=== PATIENT | male | born 1980 | race Caucasian/White ===

== ENCOUNTER 2018-12-19 23:04 | Emergency (ER) | payer SELFPAY ==
[2018-12-19 23:19] VITALS: TEMP 98.9; BMI 28.8
[2018-12-19] MEDS ORDERED: IBUPROFEN 600 MG TABLET (FP) PO ONE (23:39)
--- NOTE | 2018-12-19 23:43 | PDOC ---
History of Present Illness - General Chief Complaint: Injury Stated Complaint: RIGHT WRIST PAIN Time Seen by Provider: 12/19/18 23:38 History Source: Patient Exam Limitations: Intoxication - History of Present Illness Initial Comments: 12/19/18 23:40 HISTORY OF PRESENT ILLNESS: This 38-year-old RHD male was brought to emergency department by his brother for evaluation of right wrist pain status post slip and fall down 3 concrete steps. Patient states she was having an argument with his girlfriend after having a couple of drinks, walking away from her missed a step walking down concrete steps. A varma slipped landing on an extended right hand. Patient came to emergency department immediately for evaluation after the injury. Patient does report an ORIF of the right wrist but is unsure of when the surgery was performed. No recent travel or sick contacts. PAST MEDICAL HISTORY: Denies past medical history SURGICAL HISTORY: see HPI ALLERGIES: No known drug allergies REVIEW OF SYSTEMS General/Constitutional: Denies fever or chills. Denies weakness, weight change. HEENT: Denies change in vision. Denies ear pain or discharge. Denies sore throat. Cardiovascular: Denies chest pain or shortness of breath. Respiratory: Denies cough, wheezing, or hemoptysis. Gastrointestinal: Denies nausea, vomiting, diarrhea or constipation. Denies rectal bleeding. Genitourinary: Denies dysuria, frequency, or change in urination. Musculoskeletal: see HPI Skin and breasts: Denies rash or easy bruising. Neurologic: Denies headache, vertigo, loss of consciousness, or loss of sensation. Psychiatric: Denies depression or anxiety. Endocrine: Denies increased thirst. Denies abnormal weight change. Hematologic/Lymphatic: Denies anemia, easy bleeding, or history of blood clots. Allergic/Immunologic: Denies hives or skin allergy. Denies latex allergy. PHYSICAL EXAM General Appearance: Well-appearing, appropriately dressed. No apparent distress , no intoxication. Respiratory/Chest: Lungs CTAB. No shortness of breath, chest tenderness, respiratory distress, accessory muscle use. No crackles, rales, rhonchi, stridor , wheezing, dullness Cardiovascular: RRR. S1, S2. No JVD, murmur, bradycardia, tachycardia. Vascular Pulses: Radial (R): 2+, Radial (L): 2+ Musculoskeletal/Extremities: Swelling present dorsum of the right hand over the distal radius. Tenderness to palpation over the dorsum of the right hand. No snuffbox tenderness noted. Full range of motion of all fingers with flexion and extension against resistance. Capillary refill is within normal limits. Increased pain with flexion and extension of the right wrist. No bony tenderness over proximal radius and ulna of the right arm. NVI. Integumentary: Appropriate color, dry, warm. No cyanosis, erythema, jaundice or rash 12/20/18 00:11 Past History - Past Medical History Allergies/Adverse Reactions: Allergies Allergy/AdvReac Type Severity Reaction Status Date / Time No Known Allergies Allergy Verified 12/19/18 23:13 Home Medications: Ambulatory Orders NK [No Known Home Medication] 12/19/18 - Psycho Social/Smoking Cessation Hx Smoking History: Never smoked Have you smoked in the past 12 months: No Information on smoking cessation initiated: No Hx Alcohol Use: No Drug/Substance Use Hx: No *Physical Exam - Vital Signs Last Vital Signs Temp Pulse Resp BP Pulse Ox 98.9 F 89 20 139/91 99 12/19/18 23:13 12/19/18 23:13 12/19/18 23:13 12/19/18 23:13 12/19/18 23:13 Medical Decision Making - Medical Decision Making 12/19/18 23:43 A/P: 38-year-old male with right wrist pain status post slip and fall X-ray of the right wrist and hand Motrin 600 mg orally now Reassess 12/20/18 00:09 X-rays as read by me: No acute fractures or dislocations are present. Tank wrap Discharge home with orthopedic follow-up I discussed the physical exam findings, ancillary test results and final diagnoses with the patient. I answered all of the patient's questions. The patient was satisfied with the care received and felt comfortable with the discharge plan and treatment plan. The patient will call their primary care physician within 24 hours to arrange follow-up and will return to the Emergency Department with any new, persistent or worsening symptoms. Portions of this note have been documented using voice recognition software. As a result, errors may occur in the generation engineering technologist process. Effort has been made to correct all grammatical and generation engineering technologist error, but some may have been missed. Discharge - Discharge Information Problems reviewed: Yes Clinical Impression/Diagnosis: Contusion of right wrist, initial encounter Condition: Stable Disposition: HOME - Admission No - Follow up/Referral Referrals: Eliel Fall MD [Primary Care Provider] - Juwan Bundy MD [Staff Physician] - - Patient Discharge Instructions Additional Instructions: Take Tylenol or Motrin as needed for pain. Follow manufacturers instructions for appropriate dosage. Rest. Apply ice for 20 minutes and removed for at least 20 minutes before reapplying the ice. Keep Tank wrap on your wrist as much as possible to help decrease some of the swelling control pain. Whenever possible keep your wrist elevated. You've been given the number for an orthopedist. If symptoms do not resolve within the next 7 days call the orthopedist for further evaluation. Return to emergency department for discoloration of the fingers, numbness or tingling to the fingers, worsening pain, or any other concerns. Thank you very much for choosing us to provide your emergent healthcare needs. - Post Discharge Activity
[2018-12-20] MEDS ORDERED: IBUPROFEN 600 MG TABLET (FP) PO ONE
[2018-12-20 00:30] VITALS: BP 135/93; PULSE 86
== END 2018-12-20 00:20 | disposition home or self-care (01) ==
LOC: JER 23:04
DX: S60.211A Contusion of right wrist, initial encounter (principal); W10.8XXA Fall (on) (from) other stairs and steps, initial encounter; Y93.89 Activity, other specified; Y92.018 Other place in single-family (private) house as the place of occurrence of the external cause; Y99.8 Other external cause status
CPT/HCPCS: 73110-TC-RT-FY; 73130-TC-RT-FY; 99282-25

== ENCOUNTER 2020-02-25 12:01 | Emergency (ER) | payer OTHER ==
[2020-02-25] MEDS ORDERED: IBUPROFEN 400 MG TABLET (FP) PO ONE ×2 (12:22→12:54)
[2020-02-25 12:31] VITALS: BP 153/92; PULSE 73; TEMP 99.3; BMI 27.3
== END 2020-02-25 13:55 | disposition home or self-care (01) ==
LOC: FER 12:01
DX: S60.222A Contusion of left hand, initial encounter (principal); S16.1XXA Strain of muscle, fascia and tendon at neck level, initial encounter; S39.012A Strain of muscle, fascia and tendon of lower back, initial encounter
CPT/HCPCS: 72050-TC-FY; 72100-TC-FY; 73130-TC-LT-FY; 99285-25